=== PATIENT | female | born 1970 ===

== ENCOUNTER 2021-01-25 05:40 | Inpatient (IN) ==
[2021-01-25] MEDS ORDERED: Buffered Lidocaine 1% SYRIN 1 ml INTRADERM ONE (06:00)
[2021-01-25] MEDS ORDERED: Lactated Ringers 1000 ml BAG 1,000 ML IV SCH (06:00)
[2021-01-25] MEDS ORDERED: Famotidine IV 10 MG/ML 2 ml VIAL (20 mg) IV ONE (06:00)
[2021-01-25] MEDS ORDERED: Famotidine IV 10 MG/ML 2 ml VIAL (20 mg) ONE (06:05)
[2021-01-25] MEDS ORDERED: Clindamycin 900 MG/D5W BAG 900 MG/50 ML BAG IVPB ONE (06:05)
[2021-01-25] MEDS ORDERED: Heparin 5000 UNITS/ML 1 mL VIAL ONE (06:05)
[2021-01-25] MEDS ORDERED: fentaNYL 250 mcg/5 ml 50 MCG/ML 5 ml VIAL (250 MCG) ONE (06:47)
[2021-01-25] MEDS ORDERED: Midazolam 2 mg/2 ml VIAL 1 mg/ml 2 ml VIAL (2 mg) ONE (06:47)
[2021-01-25] MEDS ORDERED: Rocuronium 50 mg VIAL 10 mg/ml 5 ml VIAL (50 mg) ONE (06:47)
[2021-01-25] MEDS ORDERED: Propofol 10 MG/ML 20 ML BTL ONE ×2 (06:51→10:18)
[2021-01-25] MEDS ORDERED: Lidocaine 2% PF 5 ML VIAL ONE (06:51)
[2021-01-25] MEDS ORDERED: Bupivacaine 0.25% SDV 30 ML ONE (07:24)
[2021-01-25] MEDS ORDERED: Methylene Blue 0.5 % 50 MG/10 ML AMP IV ONE (07:24)
[2021-01-25] MEDS ORDERED: Ondansetron 4 mg VIAL 2 MG/ML 2 ml VIAL ONE ×3 (08:50→11:41)
[2021-01-25] MEDS ORDERED: Phenylephrine IV 10 MG/ML 1 ml VIAL ONE (08:50)
[2021-01-25] MEDS ORDERED: Acetaminophen IV 1 GM/100ML 100 ML ONE (08:50)
[2021-01-25] MEDS ORDERED: Phenylephrine 40 mcg/mL 10mL (400mcg) SYRINGE ONE (08:50)
[2021-01-25] MEDS ORDERED: Dexamethasone IV 4 MG/ML VIAL 1 ml VIAL ONE (08:50)
[2021-01-25] MEDS ORDERED: Naloxone 0.4 mg VIAL 0.4 mg/ml 1 ml VIAL IV PRN (09:46)
[2021-01-25] MEDS ORDERED: Ondansetron 4 mg VIAL 2 MG/ML 2 ml VIAL IV PRN ×2 (09:46→10:38)
[2021-01-25] MEDS ORDERED: DiMENhydriNATE IV 50 mg/ml 1 ml VIAL IV PUSH PRN (09:46)
[2021-01-25] MEDS ORDERED: fentaNYL 100 mcg/2 ml 50 MCG/ML VIAL ONE ×2 (10:39→10:50)
[2021-01-25] MEDS ORDERED: DiMENhydriNATE IV 50 mg/ml 1 ml VIAL ONE (10:39)
[2021-01-25] MEDS: fentaNYL 100 mcg/2 ml 50 MCG/ML VIAL IV PRN ×4 (10:44→11:05)
[2021-01-25] MEDS ORDERED: diPHENhydraMINE IV 50 MG/ML 1 ml VIAL (BENADRYL) SLOW PUSH PRN (10:46)
[2021-01-25] MEDS ORDERED: HYDROmorphone 1 MG/1 ML SYRINGE IV SLOW PU PRN (10:46)
[2021-01-25] MEDS ORDERED: HYDROcodone/ACET. 7.5/325 LIQ 15 ML UDC PO PRN (10:46)
[2021-01-25] MEDS ORDERED: HYDROmorphone 0.5 MG/0.5 ML SYRINGE IV SLOW PU PRN (10:46)
[2021-01-25] MEDS ORDERED: Ondansetron 4 mg VIAL 2 MG/ML 2 ml VIAL IV ONE (11:45)
[2021-01-25] MEDS: Lactated Ringers 1000 ml BAG 1,000 ML IV SCH ×2 (12:12→19:02)
[2021-01-25] MEDS ORDERED: Metoclopramide 5 MG/ML VIAL (10 mg) IV SLOW PU PRN (13:11)
[2021-01-25] MEDS: Heparin 5000 UNITS/ML 1 mL VIAL SUBCUT SCH ×2 (14:03→21:33)
[2021-01-25] MEDS: Famotidine IV 10 MG/ML 2 ml VIAL (20 mg) IV SLOW PU SCH (21:33)
[2021-01-26] MEDS: Lactated Ringers 1000 ml BAG 1,000 ML IV SCH (01:46)
[2021-01-26] MEDS: Heparin 5000 UNITS/ML 1 mL VIAL SUBCUT SCH ×2 (05:55→13:40)
[2021-01-26] MEDS: Famotidine IV 10 MG/ML 2 ml VIAL (20 mg) IV SLOW PU SCH (10:34)
[2021-01-26] MEDS ORDERED: D5W 1/2 NS KCl 20 meq 1000 ml 1,000 ML IV SCH (11:00)
[2021-01-26 15:36] VITALS: BP 109/85
[2021-01-28] MEDS ORDERED: Scopolamine PATCH Remove NOTE PATCH OFF ONE (11:00)
== END 2021-01-26 18:00 | disposition home or self-care (01) | DRG 403 ==
LOC: AA 05:40 → SSU 12:09
PROVIDERS: ADMIT Surgery; ATTEND Surgery